=== PATIENT | male | born 1960 | race Caucasian/White ===

== ENCOUNTER 2020-09-07 09:54 | Outpatient (CLI) | payer BC, SELFPAY ==
--- NOTE | ~2020-09-07 | CT_ITS ---
EXAMINATION: CT sinus wo con DATE: 09/07/2020 10:10 INDICATION: Chronic sinusitis TECHNIQUE: Computed tomography (CT) of the paranasal sinuses was performed without contrast. Iterativ e reconstruction technique was employed. Exam dose: 272.65 mGy-cm total exam DLP. COMPARISON: None FINDINGS: There is rightward deviation of the nasal septum. There is intralamellar cell of left middle nasal turbinate. There is soft tissue swelling of left middle and inferior nasal turbinates compared to the right side . Infundibulum There is mild focal mucoperiosteal thickening of the right and left frontal sinuses. There is prominent patchy soft tissue opacification of the ethmoid air cells bilaterally. There are bilateral nasal antral windows. There is minimal mucoperiosteal thickening of the left maxillary sinus. There is asymmetric diminished size and extensive soft tissue thickening with calcification of the ri ght maxillary sinus, in addition to some bony thickening of the right maxillary sinus wall. There is minimal mucoperiosteal thickening of the sphenoid sinuses. The mastoid air cells are normally developed and aerated bilaterally. Middle and inner ear apparatus appear normal bilaterally. IMPRESSION: Rightward deviation of nasal septum Interlamellar cell of left middle nasal turbinate Minimal mucoperiosteal thickening of the frontal sinuses Bilateral nasal antral windows Extensive soft tissue thickening with calcification of the right maxillary sinus, right maxillary sin us wall bony thickening Minimal mucoperiosteal thickening of the left maxillary sinus and sphenoid sinuses Prominent patchy soft tissue opacification of ethmoid air cells Minimal mucoperiosteal thickening of the sphenoid sinuses Reviewed, dictated and finalized at [facility]. Reviewed, dictated and finalized at [facility]. IMPRESSION: Rightward deviation of nasal septum Interlamellar cell of left middle nasal turbinate Minimal mucoperiosteal thickening of the frontal sinuses Bilateral nasal antral windows Extensive soft tissue thickening with calcification of the right maxillary sinu s, right maxillary sinus wall bony thickening Minimal mucoperiosteal thickening of the left maxillary sinus and sphenoid sinu ses Prominent patchy soft tissue opacification of ethmoid air cells Minimal mucoperiosteal thickening of the sphenoid sinuses
== END 2020-09-07 09:55 | disposition home or self-care (01) ==
PROVIDERS: PCP Internal Medicine; Visit Provider Otolaryngology
DX: J32.9 Chronic sinusitis, unspecified (principal); J34.3 Hypertrophy of nasal turbinates; R44.8 Other symptoms and signs involving general sensations and perceptions; R09.82 Postnasal drip; J34.2 Deviated nasal septum; J34.89 Other specified disorders of nose and nasal sinuses
CPT/HCPCS: 70486

== ENCOUNTER 2020-10-19 09:16 | Outpatient (CLI) | payer BC, SELFPAY ==
--- NOTE | 2020-10-19 09:27 | ECG_ITS ---
Measurements Intervals [place] Rate: 80 P: 213 OK: 218 QRS: 6 QRSD: 100 T: 31 QT: 384 QTc: 443 Interpretive Statements ELECTRONIC ATRIAL PACEMAKER BASELINE ARTIFACT- I, II, III, AVR, AVL, AVF, V1-V6 ATYPICAL ECG Electronically Signed On 10-19-2020 12:57:25 CDT by Mateus Gil D.O.
== END 2020-10-19 09:17 | disposition home or self-care (01) ==
LOC: ANHSURGERY 09:23
PROVIDERS: PCP Internal Medicine; Visit Provider Otolaryngology
DX: Z01.818 Encounter for other preprocedural examination (principal); Z95.0 Presence of cardiac pacemaker
CPT/HCPCS: 93005

== ENCOUNTER 2020-10-26 01:58 | Day surgery (SDC) | payer BC, SELFPAY ==
[2020-10-18 15:39] VITALS: BMI 47.7
--- NOTE | 2020-10-25 08:08 | PM.IMHP ---
H&P: HPI History of Present Illness Date/Time: 10/25/20 08:08 60-year-old male history of nasal obstruction as well as chronic sinusitis. Presents for planned surgical procedures. No changes in medical history of symptoms. Chief Complaint: Chronic sinusitis recurrent sinusitis nasal obstruction inferior turbinate hypertrophy septal deviation Review of Systems Constitutional: Constitutional: Denies fatigue, Denies fever(s) and Denies lethargy Eyes: Eyes: Denies blurry vision and Denies change in vision ENT: Reports as per HPI Cardiovascular: Cardiovascular: Denies chest pain Respiratory: Respiratory: Denies cough Endocrine: Endocrine: Denies fatigue Hematologic/Lymphatic: Hematologic/Lymphatic: Denies easy bleeding, Denies easy bruising and Denies lymphadenopathy Allergic/Immunologic: Allergic/Immunologic: Denies seasonal rhinorrhea [facility] Social History Social History (Updated 02/21/20 @ 16:44 by Ava Coyne MA) Smoking status: Never smoker Second hand tobacco smoke exposure: No Alcohol intake: never Substance use: never Spiritual care concerns: No Meds Home Medications and Allergies Home Medications Medication Instructions Recorded Confirmed Type acetaminophen 650 mg 650 mg PO Q12H 02/21/20 10/18/20 History tablet,extended release albuterol sulfate 90 mcg/actuation 1 inh INHALATION Q4-6H PRN 02/21/20 10/18/20 History breath activated powder inhaler diphenhydramine HCl 25 mg capsule 25 mg PO HS PRN 02/21/20 10/18/20 History levothyroxine 75 mcg tablet 75 mcg PO DAILY 02/21/20 10/18/20 History loratadine 10 mg capsule 10 mg PO DAILY 02/21/20 10/18/20 History losartan 100 mg tablet 100 mg PO DAILY 02/21/20 10/18/20 History metoprolol tartrate 100 mg tablet 200 mg PO DAILY 02/21/20 10/18/20 History rivaroxaban 20 mg tablet 20 mg PO DAILY 02/21/20 10/18/20 History tamsulosin 0.4 mg capsule 0.4 mg PO DAILY 02/21/20 10/18/20 History fluticasone propionate 50 See Rx Instructions .ROUTE 07/11/20 10/18/20 Rx mcg/actuation nasal .COMPLEX #16 gram spray,suspension [id number]-[id number]-[id number] 1 inh INHALATION DAILY 10/18/20 10/18/20 History [Gildardo King] Allergies Allergy/AdvReac Type Severity Reaction Status Date / Time No Known Allergies Allergy Unknown Verified 10/18/20 15:03 Exam Const: General: cooperative, healthy appearing, comfortable, well developed and alert HENMT: Head: normal to inspection, normocephalic and atraumatic Ears: hearing grossly normal bilaterally, external ears normal, TM's normal bilaterally and EAC's normal General nose exam: Normal external nose present, Normal nares present and Other nasal findings present ( Middle meati edema septal deviation inferior turbinate hypertrophy) Face and sinus: normal facial exam Mouth: Yes Normal oral and palatal mucosa present, Yes lip normal, Yes tongue normal, Yes oropharynx normal and Yes moist mucous membranes Teeth and gingiva: dentition normal and gingiva normal Throat: posterior oropharynx normal, tonsils normal and uvula midline Eyes: General: appearance normal, both eyes and all related structures Periorbital: periorbital findings normal Eyelids: eyelids normal Conjunctivae: conjunctivae normal Sclera: sclerae normal Neck: Neck: normal visual inspection, full ROM and no lymphadenopathy Thyroid: thyroid normal Lymphatic: no lymphadenopathy noted Resp: Effort & Inspection: normal respiratory effort and able to speak in complete sentences Cardio: Jugular venous distension: no JVD Neuro: Cranial nerves: Yes CN's II-XII intact bilaterally Assessment and Plan Assessment and plan (1) Recurrent sinusitis: Code(s): J32.9 - Chronic sinusitis, unspecified Status: Acute Assessment and Plan: the plan is for the OR for image guided bilateral maxillary antrostomies total ethmoidectomies and frontal sinusotomies as well as endoscopic assisted septoplasty and inferior turbinate reducti
[2020-10-26] VITALS (9 sets, daily range): BP systolic 115–182; BP diastolic 54–95; PULSE 77–86; RESP 18–23; TEMP 36.6–37; O2SAT 90–99
[2020-10-26] MEDS: LACTATED RINGERS 1,000 ML 30 ML IV CONT ×2 (06:58→12:04)
[2020-10-26] MEDS: ACETAMINOPHEN 500 MG TABLET 1000 MG PO (06:59)
--- NOTE | 2020-10-26 07:08 | WPDHPUPDATE1 ---
History and Physical Update Update Date/Time: 10/26/20 07:08 History and Physical has been reviewed, including an updated exam of the patient. There are NO changes in the patient's condition. Risks, benefits, and alternatives have been discussed and questions answered. Patient agrees to proceed with procedure.
--- NOTE | 2020-10-26 08:08 | WPDANESEPPF ---
Anes - Initial Pre Proc Eval Procedure: Operation Date: 10/26/20 08:30 Proposed Procedures p Endoscopic Septoplasty, Image Guided Bilateral Inferior Turbinectomy, Bilateral Maxillary Antrostomy, Total Ethmoidectomy, Frontal Sinusotomy - Beny Pedro MD Date/Time: 10/26/20 08:08 Surgeon: Beny Pedro MD Pre Op Diagnosis: chronic sinusitis Patient Data Age: 60 Gender: M Height: 1.91 m Weight: 171.5 kg Last Vital Signs Temp 36.6 C 10/26/20 06:40 Pulse 80 10/26/20 06:40 Resp 18 10/26/20 06:40 BP 182/82 H 10/26/20 06:40 Pulse Ox 99 10/26/20 06:40 Allergies Allergy/AdvReac Type Severity Reaction Status Date / Time No Known Allergies Allergy Unknown Verified 10/26/20 07:08 Home Medications Medication Instructions Recorded Confirmed Type acetaminophen 650 mg 650 mg PO Q12H 02/21/20 10/26/20 History tablet,extended release albuterol sulfate 90 mcg/actuation 1 inh INHALATION Q4-6H PRN 02/21/20 10/26/20 History breath activated powder inhaler diphenhydramine HCl 25 mg capsule 25 mg PO HS PRN 02/21/20 10/26/20 History levothyroxine 75 mcg tablet 75 mcg PO DAILY 02/21/20 10/26/20 History loratadine 10 mg capsule 10 mg PO DAILY 02/21/20 10/26/20 History losartan 100 mg tablet 100 mg PO DAILY 02/21/20 10/26/20 History metoprolol tartrate 100 mg tablet 200 mg PO DAILY 02/21/20 10/26/20 History rivaroxaban 20 mg tablet 20 mg PO DAILY 02/21/20 10/26/20 History tamsulosin 0.4 mg capsule 0.4 mg PO DAILY 02/21/20 10/26/20 History fluticasone propionate 50 See Rx Instructions .ROUTE 07/11/20 10/26/20 Rx mcg/actuation nasal .COMPLEX #16 gram spray,suspension [id number]-opxnpeujl-nqramery 1 inh INHALATION DAILY 10/18/20 10/26/20 History [Trelegy Ellipta] Patient hx anesthesia problems: none Family hx anesthesia problems: none PMFSH Past Medical History Medical History (Updated 10/26/20 @ 08:09 by Bubba Foster MD) Chronic a-fib Morbid obesity VIANEY on CPAP Pacemaker Surgical History Surgical History (Updated 10/26/20 @ 08:09 by Bubba Foster MD) H/O sinus surgery History of knee surgery Social History Social History Smoking status: Never smoker Second hand tobacco smoke exposure: No Alcohol intake: never Substance use: never Living arrangements: with family Spiritual care concerns: No Anes - Eval Final PreProcedure Day of Procedure 10/26/20 08:08 Patient weight: morbidly obese Heart: regular rate and rhythm Lungs: clear to auscultation Airway: Mallampati scale class II Neurological: alert and oriented ASA classification: IV Emergent: no Anesthetic plan: proceed Anesthesia type and monitoring: general ETT and standard monitoring Informed Consent: The patient's anesthetic plan and its attendant risks and benefits were discussed with the patient/family/POA. Questions were solicited and answers provided to the satisfaction of the patient/family/POA.
[2020-10-26] MEDS: OXYMETAZOLINE HCL 0.05% NAS 15 ML BTL (*BKC) 1 SPRAY NASAL (08:23)
[2020-10-26] MEDS: ceFAZolin 3 GM/D5W 100 ML 100 ML IVPB (08:28)
--- NOTE | 2020-10-26 12:59 | P.OP_ITS ---
Procedure Note - Detailed Date of Procedure 10/26/20 Pre-op Diagnosis chronic sinusitis Nasal obstruction, septal deviation Post-op Diagnosis same Procedure Performed 1. Endoscopic assisted septoplasty 2. Image guided endoscopic maxillary antrostomies 3. Image guided endoscopic total ethmoidectomies 4. Image guided endoscopic frontal sinusotomies Surgeon Beny Pedro MD Anesthesia general Indications see above Findings scant polypoid tissue disease sinuses septal deviation Description of Procedure patient was correctly identified and consent was verified in the preoperative holding area. The patient was brought to the OR and a time-out was performed. General anesthesia was induced and endotracheal tube was secured the patient's airway and taped to the left lower lip. Time-out was performed. Afrin taped Afrin-soaked pledgets were placed in the bilateral nasal passages and allowed to sit for 5 minutes before being removed. Image guidance was initiated. The patient was prepped and draped for the aforementioned procedures. The septum was anesthetized with 1% lidocaine with 1 100,000 parts epinephrine 10 cc total. A [place] type incision was made on the left anterior nasal septum with a 15 blade this was elevated with 7 Vietnamese suction bilaterally the deviated nasal septum was removed with combination of instruments of note there was a right- sided perforation over large spur. The left maxillary sinus was entered after the middle turbinate was removed because it contained dense polypoid tissue and was scarred to the lateral nasal wall. The stump of the middle turbinate was cauterized with the maxillary antrostomies created using a combination of backbiter straight through cut and double ball tip probe. It was widened connected to the natural os as previously it had not been. Total ethmoidectomy was performed with combination of [place] and micro debrider this side was packed with Afrin-soaked pledgets. The same procedures were performed on the right side and the middle turbinate was again removed is a contain dense polypoid tissue was also scarred to the lateral nasal wall. Of note similar findings were found on both sides except the right maxillary sinus was much smaller than the left. The skull base and frontal sinuses were opened using a 70 degree endoscope and frontal sinus instruments. Of note the right frontal sinus was very difficult to enter given its narrow outflow tract. Given that there is minimal frontal sinus disease the outflow tract was not widened with the drill. At the end of the procedure hemostasis was adequate. The [place] incision was closed with 3 interrupted 5 0 fast gut sutures. Watson splints were placed and sutured anteriorly using a 3 0 nylon suture. Again hemostasis was adequate. There were no complications. I performed all dictated portions of the procedure. Care the patient was turned over to Anesthesiology. absorbable packing was placed Implants Watson splints Estimated Blood Loss -150.0 Drains No Packing No Pathology none sent Complications No immediate complications Condition stable Disposition PACU
[2020-10-26] MEDS: oxyCODONE HCL (*CRX) 5 MG TAB IR PO (13:29)
--- NOTE | 2020-10-26 14:07 | SUR.PHASEII ---
1330; PT C/O HEADACHE. ICE PACK PLACED ON FOREHEAD OVER DRY CLOTH.
--- NOTE | 2020-10-26 14:59 | SUR.PHASEII ---
1915; CALLED DR LI REGARDING WHEN TO RESTART XARELTO. DR LI STATED PT MAY RESTART XARELTO WHEN HE NEEDS TO PER PCP. IF THE PT COULD NOT RESTART UNTIL THE POST OP VISIT IN 1 WEEK THAT WOULD BE BETTER PER DR LI. IT WILL CAUSE INCREASED NASAL BLEEDING. WRITTEN ON PT'S DISCHARGE PACKET AND EXPLAINED TO PT. PT VERBALIZED UNDERSTANDING. MEETS DISCHARGE CRITERIA
== END 2020-10-26 14:55 | disposition home or self-care (01) ==
PROVIDERS: PCP Internal Medicine; Visit Provider Otolaryngology
PROC: (CPT 31256; principal; 2020-10-26 08:30)
DX: J32.9 Chronic sinusitis, unspecified (principal); J34.2 Deviated nasal septum; J34.3 Hypertrophy of nasal turbinates; R09.82 Postnasal drip; J34.89 Other specified disorders of nose and nasal sinuses; I48.20 Chronic atrial fibrillation, unspecified; G47.33 Obstructive sleep apnea (adult) (pediatric); Z95.0 Presence of cardiac pacemaker; E66.01 Morbid (severe) obesity due to excess calories; Z68.42 Body mass index [BMI] 45.0-49.9, adult; Z79.51 Long term (current) use of inhaled steroids; Z79.01 Long term (current) use of anticoagulants
CPT/HCPCS: 31256; 31253; 61782; 30520; 93005; A9270; J0330; J0690; J1100; J2250; J2405; J2704; J3010; J7120

== ENCOUNTER 2021-01-21 08:06 | Outpatient (CLI) | payer BC, SELFPAY ==
--- NOTE | ~2021-01-21 | CT_ITS ---
EXAMINATION: CT sinus wo con DATE: 01/21/2021 08:41 INDICATION: Frontal pressure. Chronic sinusitis. TECHNIQUE: Computed tomography (CT) of the paranasal sinuses was performed without contrast. Iterativ e reconstruction technique was employed. Exam dose: 327.26 mGy-cm total exam DLP. COMPARISON: 09/07/2020 CT sinuses FINDINGS: There is interval complete opacification of the right frontal sinus and persistent mild soft tissue t hickening of the left frontal sinus since 09/07/2020. There is extensive patchy opacification of the right ethmoid air cells but diminished opacification o f left ethmoid air cells since 09/07/2020. Interval bilateral partial ethmoidectomies and resection of both middle nasal turbinates since 021. There are chronic bilateral nasal antral windows. There is chronic prominent soft tissue opacification and calcification/ossification within the right maxillary sinus, present on 09/07/2020. There is fluid in the left maxillary sinus since 09/07/2020. There is prominent mucoperiosteal thickening of the right sphenoid sinus, largely new since 09/07/2020 . The mastoid air cells are normally developed and aerated. IMPRESSION: Resection of the middle nasal turbinates and bilateral partial ethmoidectomies since 09/07 Fluid level in the left maxillary sinus, new since 09/07/2020 Complete opacification of right frontal sinus since 09/07/2020 Interval increased mucoperiosteal thickening of the right sphenoid sinus since 09/07/2020 Chronic right maxillary sinus extensive opacification and calcification/ossification Reviewed, dictated and finalized at [facility]. Reviewed, dictated and finalized at [facility]. IMPRESSION: Resection of the middle nasal turbinates and bilateral partial ethm oidectomies since 09/07/2020 Fluid level in the left maxillary sinus, new since 09/07/2020 Complete opacification of right frontal sinus since 09/07/2020 Interval increased mucoperiosteal thickening of the right sphenoid sinus since 09/07/2020 Chronic right maxillary sinus extensive opacification and calcification/ossific ation
== END 2021-01-21 08:07 | disposition home or self-care (01) ==
LOC: ANHIMG 08:07
PROVIDERS: PCP Internal Medicine; Visit Provider Otolaryngology
DX: J32.9 Chronic sinusitis, unspecified (principal); R44.8 Other symptoms and signs involving general sensations and perceptions; Z98.890 Other specified postprocedural states
CPT/HCPCS: 70486

== ENCOUNTER 2021-03-01 00:50 | Day surgery (SDC) | payer BC, SELFPAY ==
[2021-02-26 15:18] VITALS: BMI 47.0
--- NOTE | 2021-02-26 15:23 | PC.NURSE ---
Report to the Outpatient Waiting Room, entrance under the green pavilion located off [facility], at time _1030__ on date 03-01-2021_. OR Time: ___1230_. - You and your visitor will be asked a series of questions to screen for COVID 19 for your protection. - A mask is required within the hospital. - Only one visitor is allowed at this time. Patient visitors will be guided where to wait when not with patient. Preoperative COVID Testing Requirements: No COVID Test needed if: (proof is required; if not received patient will have Rapid Test prior to entry) - Patient has received COVID Vaccine at least 14 days prior to procedure date or - Patient has positive COVID test result within last 90 days of surgery date. COVID Test needed if above criteria is not met If not COVID vaccinated a COVID test must be conducted within 72 hours of surgery and patient is asked to isolate self from time of testing until procedure. You will go to the [facility] for your COVID testing. The [facility] is located at the corner of [address] [facility]. You will only be called if COVID results are positive and your surgeon may reschedule your elective surgery date. Patients may have clear liquids (water, carbonated beverages, clear teas, apple juice) until 3 hours prior to surgery with a maximum of 20 ounces. - No food from midnight until time of surgery - Infants may have breast milk until 4 hours before surgery, formula 6 hours prior to surgery. - Children will be allowed to drink immediately following surgery. If applicable, please bring a bottle or sippy cup to assist with drinking. Juice, water, soda, and popsicles are readily available. For infants on formula, please bring formula the day of surgery. Pacifiers are allowed. Take the following medications with a SIP of water the morning of surgery: _Levothyroxine, Metoprolol, and Inhalers. Medications to discontinue per physician Date to take last dose Please no make-up, nail mohawk, hairspray, perfume, deodorant, or body powder the day of surgery. No jewelry (including any body piercings) or valuables the day of surgery, leave them at home. Please take a shower or bath the night before, or the morning of, surgery with an antibacterial soap. Wear comfortable, loose fitting clothing. Children are encouraged to wear pajamas. - Jewelry must be removed prior to entering the operating room. Rings and piercings that are not removed may be cut off. - The hospital will not accept responsibility for valuables. - Please leave all valuables, including medications, at home the day of surgery. If you are going home after surgery, a licensed cattle driver must drive you home. - NO public transportation without another adult. - We recommend that an adult stay with you for 24 hours following discharge. - We also recommend that you do not drive, make important decision, drink alcoholic beverages, or take any drugs that were not prescribed by your health care provider for at least 24 hours after your discharge time. For Pediatric surgeries, we recommend two adults accompany the child home (only one inside the building at this time). Follow any additional instructions given to you from your surgeon. Telephone instructions given to Sergio Vargas_and asked if any additional questions and then verbalized understanding. Patient advised to call surgeon office or pre surgery nurse liaison [phone] if any additional questions.
--- NOTE | 2021-02-28 09:51 | PM.IMHP ---
H&P: HPI History of Present Illness Date/Time: 02/28/21 09:51 Chief Complaint: Chronic sinusitis nasal polyps facial pressure facial pain Narrative: patient presents for planned surgical procedures. No change in symptoms no change in medical history. Review of Systems Constitutional: Constitutional: Denies fatigue, Denies fever(s) and Denies lethargy Eyes: Eyes: Denies blurry vision and Denies change in vision ENT: Reports as per HPI Cardiovascular: Cardiovascular: Denies chest pain Respiratory: Respiratory: Denies cough Endocrine: Endocrine: Denies fatigue Hematologic/Lymphatic: Hematologic/Lymphatic: Denies easy bleeding, Denies easy bruising and Denies lymphadenopathy Allergic/Immunologic: Allergic/Immunologic: Denies seasonal rhinorrhea [facility] Past Medical History Medical History Chronic a-fib Morbid obesity VIANEY on CPAP Pacemaker Surgical History Surgical History H/O sinus surgery History of knee surgery Social History Social History Smoking status: Never smoker Second hand tobacco smoke exposure: No Alcohol intake: never Substance use: never Living arrangements: with family Spiritual care concerns: No Meds Home Medications and Allergies Home Medications Medication Instructions Recorded Confirmed Type acetaminophen 650 mg 650 mg PO Q12H 02/21/20 02/26/21 History tablet,extended release albuterol sulfate 90 mcg/actuation 1 inh INHALATION Q4-6H PRN 02/21/20 02/26/21 History breath activated powder inhaler diphenhydramine HCl 25 mg capsule 25 mg PO HS PRN 02/21/20 02/26/21 History levothyroxine 75 mcg tablet 75 mcg PO DAILY 02/21/20 02/26/21 History loratadine 10 mg capsule 10 mg PO DAILY 02/21/20 02/26/21 History losartan 100 mg tablet 100 mg PO DAILY 02/21/20 02/26/21 History metoprolol tartrate 100 mg tablet 200 mg PO DAILY 02/21/20 02/26/21 History rivaroxaban 20 mg tablet 20 mg PO DAILY 02/21/20 02/26/21 History tamsulosin 0.4 mg capsule 0.4 mg PO BID 02/21/20 02/26/21 History Trelegy Ellipta 1 inh INHALATION DAILY 10/18/20 02/26/21 History budesonide 0.25 mg/2 mL suspension 0.25 mg IRRIGATION BID #60 ml 11/15/20 02/26/21 Rx for nebulization Allergies Allergy/AdvReac Type Severity Reaction Status Date / Time No Known Allergies Allergy Unknown Verified 02/26/21 15:14 Exam Const: General: cooperative, healthy appearing, comfortable, well developed and alert HENMT: Head: normal to inspection, normocephalic and atraumatic Ears: hearing grossly normal bilaterally, external ears normal, TM's normal bilaterally and EAC's normal General nose exam: Normal external nose present, Normal nares present, No nasal polyps present, Normal nasal mucous membranes and turbinates present and Normal septum present Face and sinus: normal facial exam Mouth: Yes Normal oral and palatal mucosa present, Yes lip normal, Yes tongue normal, Yes oropharynx normal and Yes moist mucous membranes Teeth and gingiva: dentition normal and gingiva normal Throat: posterior oropharynx normal, tonsils normal and uvula midline Eyes: General: appearance normal, both eyes and all related structures Periorbital: periorbital findings normal Eyelids: eyelids normal Conjunctivae: conjunctivae normal Sclera: sclerae normal Neck: Neck: normal visual inspection, full ROM and no lymphadenopathy Thyroid: thyroid normal Lymphatic: no lymphadenopathy noted Resp: Effort & Inspection: normal respiratory effort and able to speak in complete sentences Cardio: Jugular venous distension: no JVD Neuro: Cranial nerves: Yes CN's II-XII intact bilaterally Assessment and Plan Assessment and plan (1) History of sinus surgery: Code(s): Z98.890 - Other specified postprocedural states Status: Acute Assessment and Plan: plan is for the OR
[2021-03-01] VITALS (8 sets, daily range): BP systolic 114–161; BP diastolic 58–87; PULSE 61–80; RESP 11–17; TEMP 36.2–37.6; O2SAT 93–99; BMI 46.7
--- NOTE | 2021-03-01 07:04 | WPDHPUPDATE1 ---
History and Physical Update Update Date/Time: 03/01/21 07:04 History and Physical has been reviewed, including an updated exam of the patient. There are NO changes in the patient's condition. Risks, benefits, and alternatives have been discussed and questions answered. Patient agrees to proceed with procedure.
--- NOTE | 2021-03-01 13:12 | P.PNAN_ITS ---
Anes - Initial Pre Proc Eval Procedure: Operation Date: 03/01/21 14:00 Proposed Procedures p Image Guided Total Ethmoidectomy, Bilateral Maxillary Antrostomy, Bilateral Frontal Sinusotomy, Bilateral Sphenoidotomy - Beny Pedro MD Date/Time: 03/01/21 13:12 Surgeon: Beny Pedro MD Pre Op Diagnosis: Chronic Sinusitis Patient Data Age: 60 Gender: M Height: 1.88 m Weight: 166 kg Allergies Allergy/AdvReac Type Severity Reaction Status Date / Time No Known Allergies Allergy Unknown Verified 02/26/21 15:14 Home Medications Medication Instructions Recorded Confirmed Type acetaminophen 650 mg 650 mg PO Q12H 02/21/20 02/26/21 History tablet,extended release albuterol sulfate 90 mcg/actuation 1 inh INHALATION Q4-6H PRN 02/21/20 02/26/21 History breath activated powder inhaler diphenhydramine HCl 25 mg capsule 25 mg PO HS PRN 02/21/20 02/26/21 History levothyroxine 75 mcg tablet 75 mcg PO DAILY 02/21/20 03/01/21 History loratadine 10 mg capsule 10 mg PO DAILY 02/21/20 02/26/21 History losartan 100 mg tablet 100 mg PO DAILY 02/21/20 03/01/21 History metoprolol tartrate 100 mg tablet 200 mg PO DAILY 02/21/20 03/01/21 History rivaroxaban 20 mg tablet 20 mg PO DAILY 02/21/20 02/26/21 History tamsulosin 0.4 mg capsule 0.4 mg PO BID 02/21/20 02/26/21 History Trelegy Ellipta 1 inh INHALATION DAILY 10/18/20 02/26/21 History budesonide 0.25 mg/2 mL suspension 0.25 mg IRRIGATION BID #60 ml 11/15/20 02/26/21 Rx for nebulization Patient hx anesthesia problems: none Family hx anesthesia problems: none Results Review: All pre-operative results and documents have been reviewed as part of the pre-operative evaluation. [facility] Past Medical History Medical History Chronic a-fib Morbid obesity VIANEY on CPAP Pacemaker Surgical History Surgical History H/O sinus surgery History of knee surgery Social History Social History Smoking status: Never smoker Second hand tobacco smoke exposure: No Alcohol intake: never Substance use: never Living arrangements: with family Spiritual care concerns: No Anes - Eval Final PreProcedure Day of Procedure 03/01/21 13:12 Patient weight: morbidly obese Heart: regular rate and rhythm Lungs: clear to auscultation and normal air movement Airway: Mallampati scale class II Neurological: alert and oriented Last oral intake: >/= 8 hours ASA classification: IV Emergent: no Anesthetic plan: proceed Anesthesia type and monitoring: general ETT Results Review: All pre-operative results and documents have been reviewed as part of the pre-operative evaluation. Informed Consent: The patient's anesthetic plan and its attendant risks and benefits were discussed with the patient/family/POA. Questions were solicited and answers provided to the satisfaction of the patient/family/POA.
[2021-03-01] MEDS: LACTATED RINGERS 1,000 ML 30 ML IV CONT ×2 (13:16→15:47)
[2021-03-01] MEDS: ACETAMINOPHEN 500 MG TABLET 1000 MG PO (13:21)
[2021-03-01] MEDS: ceFAZolin 3 GM/D5W 100 ML 100 ML IVPB (13:41)
--- NOTE | 2021-03-01 15:57 | P.OP_ITS ---
Procedure Note - Detailed Date of Procedure 03/01/21 Pre-op Diagnosis Chronic Sinusitis with nasal polyps Post-op Diagnosis same Procedure Performed 1. Image guided Endoscopic bilateral revision maxillary antrostomies 2. Image guided Endoscopic revision bilateral total ethmoidectomies 3. Image guided bilateral endoscopic sphenoidotomies 4. Endoscopic image guided revision frontal sinusotomies Surgeon Beny Pedro MD [employer]manations Analysis Technician None Anesthesia general Indications See above Findings Left side near perfect remnant air cells opened up maxillary antrostomy widened sphenoidotomy virgin opened small in the left left frontal widened floor beak removed Cobra. Right-sided significant polypoid edema in the frontal outflow hole ring of cells or column cells opened widened propel stent placed purulence and polyps throughout the frontal outflow tract remnant ethmoid cells and open sphenoid opened as well Description of Procedure Patient correctly identified consent verified. Patient brought to OR. Time-out performed. Anesthesia induced endotracheal tube secured. Patient prepped and draped for procedure. Second time-out performed. Image guidance initiated Afrin placed on pledgets placed in nasal passages for 5 minutes. Under endoscopic guidance and 0 degree scope left nasal passage used septum relatively midline turbinates relatively reduced maxillary antrostomy widened slightly a 2 remnant ethmoid air cells opened. The sphenoid opened with a image guidance as well as 1 Kerrison 3 Kerrison. Skull base partitions removed with frontal sinus instruments and 70 degree scope frontal sinus outflow tract widened by with Cobra removing floor/frontal beak. Right-sided maxillary antrostomy severely stenosed widened with combination of straight through cut 0 degree and 70 degree scopes straight microdebrider 70 degree microdebrider and a combination of image guided suctions to remove all the polypoid diseased tissue. Sphenoid opened with image guidance 1 and 3 Kerrison as posterior ethmoids opened with Kerrison is in straight through cuts. Skull base partitions removed with 70 degree scope frontal sinus instruments. Ring of cells opened with frontal sinus seeker as well as micro debrider the frontal sinus was easily cannulated full polypoid tissue the remnant air cells were opened using combination of frontal sinus instruments curved micro debrider. Given the edema polyps and purulence in the right frontal sinus propel stent was placed to keep patent in the postoperative healing. Bilateral nasal patent nasal passages were suctioned the choana. Hemostasis was adequate. Care the patient was turned over to Anesthesiology. Total blood loss 50 cc. I performed all dictated portions of the procedure. Care of patient was turned Anesthesiology. Implants Propel stent right frontal outflow Estimated Blood Loss -50.0 Drains No Packing No Pathology none sent Complications No immediate complications Condition stable Disposition PACU
[2021-03-01] MEDS: fentaNYL CITRATE INJ (*CRX) 100 MCG/2 ML VIAL 25 MCG IV PUSH ×2 (16:14→16:24)
[2021-03-01] MEDS: oxyCODONE HCL (*CRX) 5 MG TAB IR PO (17:00)
== END 2021-03-01 17:35 | disposition home or self-care (01) ==
PROVIDERS: PCP Internal Medicine; Visit Provider Otolaryngology
PROC: (CPT 31256; principal; 2021-03-01 14:00)
DX: J32.9 Chronic sinusitis, unspecified (principal); R44.8 Other symptoms and signs involving general sensations and perceptions; R09.82 Postnasal drip; J33.9 Nasal polyp, unspecified; Z79.01 Long term (current) use of anticoagulants; Z79.51 Long term (current) use of inhaled steroids; E03.9 Hypothyroidism, unspecified; I48.20 Chronic atrial fibrillation, unspecified; G47.33 Obstructive sleep apnea (adult) (pediatric); E66.01 Morbid (severe) obesity due to excess calories; Z68.42 Body mass index [BMI] 45.0-49.9, adult; Z95.0 Presence of cardiac pacemaker
CPT/HCPCS: 31256; 31257; 61782; 31276; A9270; C2625; J0330; J0690; J1100; J1170; J2250; J2405; J2704; J3010; J7120